=== PATIENT | male | born 1950 | race Caucasian/White ===

== ENCOUNTER 2016-09-04 17:13 | Emergency (ER) | payer MEDICARE, MEDICAID ==
--- NOTE | 2016-09-06 16:08 | ER ---
ADMIT: 09/04/2016 RM/LOC: ER [facility] MR#: [id number] [place], [place] [id number] NESTOR PARKER [address] [address] Emergency Room Report SEX: M AGE: 66 : 1950 DATE: 09/04/2016 HISTORY OF PRESENT ILLNESS: The patient is a 66-year-old, who lives at [facility]. He was eating watermelon and kind of choked on the watermelon, just half an hour prior to coming to the ER for evaluation. It is the protocol at [facility] that anybody that chokes on anything, they bring them over for evaluation. He seems to be doing okay. He tells us that he choked it up and the watermelon came up. He has some issues with anxiety. PAST MEDICAL HISTORY: Hypertension, bipolar, schizophrenia, OCD. PAST SURGICAL HISTORY: He has had surgical procedure that includes tonsillectomy. ALLERGIES: HE HAS ALLERGY TO MEDICATIONS: All located on T-sheet. See T-sheet for further evaluation. PHYSICAL EXAMINATION: VITAL SIGNS: As noted on T-sheet. GENERAL: Physical examination within normal limits. ENT: No erythema in the posterior pharynx. LUNGS: Clear. CLINICAL IMPRESSION: Choking episode. He did get tested swallowing an ounce and a half of fluid, which he did with a straw in my presence and he did very well, had no issues. Sent out with care aid instructions present. OSCAR Nava / Senthil Shook MD / hiram JOB #: [id number] CC: Senthil Shook MD, Attending Physician Lynda Knutson MD, Family Physician
== END 2016-09-04 17:50 | disposition home or self-care (01) ==
LOC: ER 17:13
DX: R09.89 Other specified symptoms and signs involving the circulatory and respiratory systems (principal); I10 Essential (primary) hypertension; Z86.59 Personal history of other mental and behavioral disorders; Z88.8 Allergy status to other drugs, medicaments and biological substances; Z79.899 Other long term (current) drug therapy